=== PATIENT | male | born 1970 ===

== ENCOUNTER 2016-11-23 20:51 | Emergency (ER) | payer SELFPAY ==
[2016-11-23 21:00] VITALS: BP 130/83; PULSE 89; RESP 18; TEMP 98.4; O2SAT 98
--- NOTE | 2016-11-23 21:30 | ED PDOC ---
HPI: CCC, URI, Sore Throat Time Seen by Provider: 11/23/16 21:03 Chief Complaint (Nursing): Cough, Cold, Congestion Chief Complaint (Provider): Cough, chest pain, feverish History Per: Patient History/Exam Limitations: no limitations Have you had recent travel within the past 21 days to any of the following countries: [place], [place], [place] or [place]?: No Onset/Duration Of Symptoms: Days (4) Current Symptoms Are (Timing): Still Present Location Of Pain: Throat, Diffuse Myalgias, Headache Sick Contacts (Context): None Associated Symptoms: Fever (No temp taken at home ), Sore Throat, Cough, Sputum , Myalgias Additional Complaint(s): PT states he last took tylenol over 8 hours [employer]. Past Medical History Reviewed: Historical Data, Nursing Documentation, Vital Signs Vital Signs: Last Vital Signs Temp 98.4 F 11/23/16 20:57 Pulse 89 11/23/16 20:57 Resp 18 11/23/16 20:57 BP 130/83 11/23/16 20:57 Pulse Ox 98 11/23/16 21:37 - Medical History PMH: Bronchitis, HTN, Pneumonia - Surgical History Surgical History: Back Surgery (x2) - Family History Family History: States: Unknown Family Hx - Living Arrangements Living Arrangements: With Family - Social History Current smoker - smoking cessation education provided: No Alcohol: None Drugs: Denies - Home Medications Home Medications: Ambulatory Orders Medication Instructions Recorded Amoxicillin/Clavulanate [Augmentin 1 tab PO BID #14 tab 11/30/15 875 MG-125 MG] Azithromycin [Zithromax] 1 tab PO DAILY #6 tab 04/20/16 Ibuprofen [Motrin] 600 mg PO Q8 PRN #21 tab 04/20/16 Promethazine/Codeine 5 ml PO Q12 PRN #100 ml 04/20/16 [Codeine/Promethazine 10 MG/5 Ml-6.25 MG/5 Ml] Pseudoephedrine [Sudafed Tab] 60 mg PO Q6 PRN #24 tab 04/20/16 Azithromycin [Zithromax] 250 mg PO DAILY #6 tab 11/23/16 - Allergies Allergies/Adverse Reactions: Allergies Allergy/AdvReac Type Severity Reaction Status Date / Time No Known Allergies Allergy Verified 11/23/16 21:01 Review of Systems ROS Statement: Except As Marked, All Systems Reviewed And Found Negative Constitutional: Positive for: Fever Cardiovascular: Positive for: Chest Pain Respiratory: Positive for: Cough Physical Exam - Reviewed Nursing Documentation Reviewed: Yes Vital Signs Reviewed: Yes - Physical Exam Appears: Positive for: Well, Non-toxic, No Acute Distress Head Exam: Positive for: ATRAUMATIC, NORMAL INSPECTION, NORMOCEPHALIC Skin: Positive for: Normal Color, Warm, DRY Eye Exam: Positive for: Normal appearance ENT: Positive for: Normal ENT Inspection Neck: Positive for: Normal, Painless ROM Cardiovascular/Chest: Positive for: Regular Rate, Rhythm Respiratory: Positive for: Normal Breath Sounds. Negative for: Accessory Muscle Use Back: Positive for: Normal Inspection Extremity: Positive for: Normal ROM Neurologic/Psych: Positive for: Alert, Oriented - ECG O2 Sat by Pulse Oximetry: 98 Disposition - Clinical Impression Clinical Impression: URI (upper respiratory infection) - Patient ED Disposition Is Patient to be Admitted: No Counseled Patient/Family Regarding: Diagnosis, Need For Followup, Rx Given - Disposition [facility] Disposition: Routine/Home Disposition Time: 22:09 Condition: GOOD Prescriptions: Azithromycin [Zithromax] 250 mg PO DAILY #6 tab Instructions: Upper Respiratory Infection (ED) Print Language: NICARAGUAN
--- NOTE | 2016-11-24 09:57 | RAD ---
HISTORY: cough COMPARISON: No prior. TECHNIQUE: Chest PA and lateral FINDINGS: LUNGS: No active pulmonary disease. PLEURA: No significant pleural effusion identified. No pneumothorax apparent. CARDIOVASCULAR: Normal. OSSEOUS STRUCTURES: No significant abnormalities. VISUALIZED UPPER ABDOMEN: Normal. OTHER FINDINGS: None. IMPRESSION: No active disease.
--- NOTE | 2016-11-24 13:31 | CARD ---
APPROVED REPORT EKG Measurement Heart [id number] <Conclusion> Normal sinus rhythm Normal ECG
== END 2016-11-23 22:24 | disposition home or self-care (01) ==
LOC: H.ER 20:51
DX: J06.9 Acute upper respiratory infection, unspecified (principal)

== ENCOUNTER 2017-03-07 11:07 | Day surgery (SDC) | payer SELFPAY ==
[2017-03-07 11:35] VITALS: BMI 35.8
[2017-03-07] MEDS ORDERED: Lactated Ringer's 1,000 ML IV ONE (12:30)
[2017-03-07] MEDS ORDERED: methylPREDNISolone Depo 80 mg/ml Inj ONE (14:34)
[2017-03-07] MEDS ORDERED: Iohexol 300 10 ML ONE (14:34)
[2017-03-07] MEDS ORDERED: Propofol 10 mg/ml Inj (20 ML) ONE (14:43)
[2017-03-07] MEDS ORDERED: Lidocaine 1% 20 MG/2 ML PF AMP ONE (14:49)
[2017-03-07] MEDS ORDERED: Lidocaine 1% Inj (20ml) ONE (14:49)
[2017-03-07] MEDS ORDERED: Lactated Ringer's 1,000 ML IV SCH (15:06)
--- NOTE | 2017-03-07 16:00 | RAD ---
PROCEDURE: INTRAOPERATIVE FLUOROSCOPY, SACRUM HISTORY: PAIN MANAGEMENT COMPARISON: None TECHNIQUE: Intraoperative fluoroscopy was provided with spot fluoroscopic images submitted. FINDINGS: Intra under fluoroscopy was provided to the referring physician was cyst and caudal epidural spinal block with spot fluoroscopic images submitted demonstrating an epidural injection at the inferior sacrum. Please see operative report further detail. 8.4 seconds of fluoroscopy time was utilized totaling 3.8 mGy. IMPRESSION: As discussed above.
[2017-03-07 16:22] VITALS: RESP 18
[2017-03-07 17:25] VITALS: BP 133/77; PULSE 55; TEMP 97.8; O2SAT 99
--- NOTE | 2017-03-08 01:31 | OP ---
PROCEDURE DATE: PREOPERATIVE DIAGNOSIS: Lumbar radiculopathy. POSTOPERATIVE DIAGNOSIS: Lumbar radiculopathy. PROCEDURE: Caudal epidural under fluoroscopic guidance. ESTIMATED BLOOD LOSS: None. COMPLICATIONS: None. DESCRIPTION OF PROCEDURE: After informed consent was obtained, the patient was brought to the OR and placed on the table on prone position. All pressure points were padded, sedation was administered by anesthesia. Lumbosacral spine was prepped with iodine x3 and draped in the normal sterile fashion. X-ray was used in the AP and lateral views to identify the sacral hiatus. 2 mL of 1% lidocaine was used to create a skin wheal, using a 25-gauge needle. A 22-gauge Touhy epidural needle was advanced in the lateral fluoro view to contact and mcgrath the sacrococcygeal ligament. There was no paresthesia during placement of the needle. After negative aspiration for heme or CSF, 2 mL of contrast was used to delineate the epidural space. After negative aspiration for heme or CSF, 20 mL of 0.5% preservative free lidocaine and Depo-Medrol 80 mg was easily instilled. There was no paresthesia during the procedure. The patient was brought to stage 2 recovery room with bilateral lower extremity motor and sensory intact. The patient was subsequently discharged from stage 2 recovery room. Andrew Siddiqui MD [facility]
== END 2017-03-07 17:35 | disposition home or self-care (01) ==
LOC: H.OPSURG 11:07
PROVIDERS: ATTEND Anesthesiology Pain Medicine
DX: M54.16 Radiculopathy, lumbar region (principal); J42 Unspecified chronic bronchitis; E66.9 Obesity, unspecified; M19.90 Unspecified osteoarthritis, unspecified site
CPT/HCPCS: 62322; J1040; J2001; J2704; J7120; Q9967

== ENCOUNTER 2017-03-27 15:01 | Emergency (ER) | payer SELFPAY ==
[2017-03-27 15:01] VITALS: BMI 35.8
[2017-03-27 15:09] VITALS: BP 132/74; PULSE 72; RESP 18; TEMP 97.6; O2SAT 97
--- NOTE | 2017-03-27 15:45 | ED PDOC ---
HPI: CCC, URI, Sore Throat Time Seen by Provider: 03/27/17 15:15 Chief Complaint (Nursing): Chest Pain Chief Complaint (Provider): Cough History Per: Patient, Family () History/Exam Limitations: no limitations Onset/Duration Of Symptoms: Days (x3 days) Current Symptoms Are (Timing): Still Present Additional Complaint(s): 47 y/o male presents to the emergency department with a complaint of a chest pain only when coughing. Denies headache, but has green sputum, runny nose, and congestion x3 days. Reports taking Tylenol and home remedies for the relief of symptoms. Denies shortness of breath, nausea, vomiting, diarrhea, abdominal pain, sore throat, and fever. No abd pain. No weakness. Past Medical History Reviewed: Historical Data, Nursing Documentation, Vital Signs Vital Signs: Last Vital Signs Temp 97.6 F 03/27/17 15:03 Pulse 72 03/27/17 15:03 Resp 18 03/27/17 15:03 BP 132/74 03/27/17 15:03 Pulse Ox 97 03/27/17 15:45 - Medical History PMH: Arthritis, Bronchitis, HTN, Pneumonia Denies: Chronic Kidney Disease - Surgical History Surgical History: Back Surgery (x2) - Family History Family History: States: Unknown Family Hx - Living Arrangements Living Arrangements: With Family - Social History Current smoker - smoking cessation education provided: No Alcohol: None Drugs: Denies - Home Medications Home Medications: Ambulatory Orders Medication Instructions Recorded Ibuprofen [Motrin] 600 mg PO TID 7 Days 03/27/17 - Allergies Allergies/Adverse Reactions: Allergies Allergy/AdvReac Type Severity Reaction Status Date / Time No Known Allergies Allergy Verified 03/27/17 15:26 Review of Systems Constitutional: Negative for: Fever, Weakness ENT: Positive for: Nose Discharge, Nose Congestion. Negative for: Throat Pain Cardiovascular: Positive for: Chest Pain (due to cough) Respiratory: Positive for: Cough, Sputum (green) Gastrointestinal: Negative for: Nausea, Vomiting, Abdominal Pain, Diarrhea Musculoskeletal: Negative for: Neck Pain, Shoulder Pain, Arm Pain Skin: Negative for: Rash Neurological: Negative for: Weakness, Numbness, Headache Physical Exam - Reviewed Nursing Documentation Reviewed: Yes Vital Signs Reviewed: Yes - Physical Exam Appears: Positive for: Non-toxic, No Acute Distress Head Exam: Positive for: ATRAUMATIC, NORMAL INSPECTION, NORMOCEPHALIC Skin: Positive for: Normal Color, Warm, Dry Eye Exam: Positive for: Normal appearance, EOMI ENT: Positive for: Nasal Congestion. Negative for: Pharyngeal Erythema, Tonsillar Exudate Neck: Positive for: Normal, Painless ROM, Supple Cardiovascular/Chest: Positive for: Regular Rate, Rhythm. Negative for: Edema, Murmur Respiratory: Positive for: Normal Breath Sounds. Negative for: Accessory Muscle Use, Respiratory Distress Gastrointestinal/Abdominal: Positive for: Normal Exam, Soft. Negative for: Tenderness Back: Positive for: Normal Inspection. Negative for: L CVA Tenderness, R CVA Tenderness Extremity: Positive for: Normal ROM. Negative for: Tenderness, Pedal Edema Neurologic/Psych: Positive for: Alert, Oriented (x3) - ECG ECG: Positive for: Interpreted By Me, Viewed By Me ECG Rhythm: Positive for: Normal QRS, Normal ST Segment, Sinus Rhythm O2 Sat by Pulse Oximetry: 97 (RA) Pulse Ox Interpretation: Normal - Radiology X-Ray: Interpreted by Me, Viewed By Me X-Ray Interpretation: No Acute Disease - Progress ED Course And Treament: 1633: Stable. AAOx3. Pain free. Likely URI. Fu with pcp. Medical Decision Making Medical Decision Making: Time:15:30 Initial impression: Cough Initial plan: --EKG --Chest x-ray --Motrin 600 mg PO --Reevaluation Scribe Attestation: Documented by Jillian Yang, acting as a scribe for Kenton Hayes MD. Provider Scribe Attestation: All medical record entries made by the Scribe were at my direction and personally dictated by me. I have reviewed the chart and agree that the record accurately reflects my personal performance of the history, physical exam, medical decision making, and the department course for this patient. I have also personally directed, reviewed, and agree with the discharge instructions and disposition. Disposition - Clinical Impression Clinical Impression: URI (upper respiratory infection) - Patient ED Disposition Is Patient to be Admitted: No Counseled Patient/Family Regarding: Studies Performed, Diagnosis, Need For Followup - Disposition Referrals: [facility] [Outside] - 03/28/17 Disposition: Routine/Home Disposition Time: 16:00 Condition: STABLE Additional Instructions: Return if not better in 3 days. Prescriptions: Ibuprofen [Motrin] 600 mg PO TID 7 Days Instructions: Upper Respiratory Infection (ED) Forms: [employer] (Colombian) Print Language: SCOTTISH
--- NOTE | 2017-03-27 17:05 | RAD ---
HISTORY: dyspnea COMPARISON: 11/23/2016. TECHNIQUE: Chest PA and lateral FINDINGS: LUNGS: No active pulmonary disease. PLEURA: No significant pleural effusion identified. No pneumothorax apparent. CARDIOVASCULAR: No radiographic findings to suggest acute or significant cardiovascular disease. OSSEOUS STRUCTURES: No significant abnormalities. VISUALIZED UPPER ABDOMEN: Normal. OTHER FINDINGS: None. IMPRESSION: No active disease. No significant interval change compared to the prior examination(s).
--- NOTE | 2017-03-28 07:54 | CARD ---
APPROVED REPORT EKG Measurement Heart [id number] <Conclusion> Normal sinus rhythm Normal ECG
== END 2017-03-27 16:39 | disposition home or self-care (01) ==
LOC: H.ER 15:01
DX: J06.9 Acute upper respiratory infection, unspecified (principal); I10 Essential (primary) hypertension

== ENCOUNTER 2017-07-28 14:38 | Emergency (ER) | payer OTHER, SELFPAY ==
[2017-07-28 14:39] VITALS: BMI 35.8
[2017-07-28] MEDS ORDERED: Sodium Chloride 0.9% 1,000 ML IV STA (15:19)
--- NOTE | 2017-07-28 15:34 | ED PDOC ---
HPI: Chest Pain Time Seen by Provider: 07/28/17 15:02 Chief Complaint (Nursing): Chest Pain Chief Complaint (Provider): Flu like symptoms History Per: Patient History/Exam Limitations: no limitations Onset/Duration Of Symptoms: Days Current Symptoms Are (Timing): Still Present Additional History Per: Patient Additional Complaint(s): This is 47 y/o male with PMH of HTN comes to the ED complaining of flu like symptoms. Patient c/o 1 day history of dry cough, congestion, fever, headache and chest soreness. Tmax 104 yesterday morning, admits bodyacheas denies any runny nose, SOB, dizziness, numbness, tingling, abdominal pain or urinary symptoms. Past Medical History Vital Signs: Last Vital Signs Temp 99.6 F 07/28/17 14:46 Pulse 96 H 07/28/17 14:46 Resp 18 07/28/17 14:46 BP 161/75 H 07/28/17 14:46 Pulse Ox 99 07/28/17 17:53 - Medical History PMH: Arthritis, Bronchitis, HTN, Pneumonia Denies: Chronic Kidney Disease - Surgical History Surgical History: Back Surgery (x2) - Family History Family History: States: Unknown Family Hx - Social History Current smoker - smoking cessation education provided: No Ex-Smoker (has not smoked in the last 12 months): No Alcohol: None Drugs: Denies - Home Medications Home Medications: Ambulatory Orders Medication Instructions Recorded Ibuprofen [Motrin] 600 mg PO TID 7 Days tab 03/27/17 Albuterol HFA [Ventolin HFA 90 1 - 2 puff IH Q4H PRN #1 bottle 07/28/17 mcg/actuation (8 g)] - Allergies Allergies/Adverse Reactions: Allergies Allergy/AdvReac Type Severity Reaction Status Date / Time No Known Allergies Allergy Verified 03/27/17 15:26 KALYAN Risk Score for UA/NSTEMI - KALYAN Risk Score Age > 64: NO 3 or more CAD Risk Factors: NO Known CAD (Stenosis greater than 50%): NO Aspirin use in past 7 days: NO Severe Angina: NO EKG ST changes greater than 0.5mm: NO Positive Cardiac Marker: NO KALYAN Score: 0 Risk %: 5% Curb-65 Severity Score - CURB-65 Severity Score Confusion: No Respiratory Rate greater than/equal to 30: No Systolic BP <90 or Diastolic BP less than/equal 60mmHg: No Age >64: No Curb-65 Score: 0 Percentage 30-day mortality: 0.6% Wells Criteria for PE - Wells Criteria for Pulmonary Embolism Clinical Signs and Symptoms of DVT: No P.E is #1 Diagnosis, or Equally Likely: No Heart Rate >100: No Immobilization at least 3 days;Surgery previous 4 weeks: No Previous, objectively diagnosed PE or DVT: No Hemoptysis: No Malignancy w/treatment within 6 months, or palliative: No Total Score: 0 Review of Systems Constitutional: Positive for: Fever Eyes: Negative for: Pain, Vision Change, Conjunctivae Inflammation ENT: Negative for: Ear Pain, Nose Pain Cardiovascular: Positive for: Other (Chest tightness ). Negative for: Palpitations, Orthopnea Respiratory: Positive for: Cough. Negative for: Shortness of Breath, Hemoptysis Gastrointestinal: Positive for: Nausea. Negative for: Vomiting, Abdominal Pain , Diarrhea Genitourinary Male: Negative for: Dysuria Musculoskeletal: Negative for: Neck Pain Skin: Negative for: Rash Neurological: Negative for: Weakness, Numbness Physical Exam - Physical Exam Appears: Positive for: No Acute Distress Head Exam: Positive for: ATRAUMATIC Skin: Positive for: Normal Color Eye Exam: Positive for: Normal appearance, EOMI ENT: Positive for: Pharynx Is (mildly red ) Neck: Positive for: Normal, Painless ROM Cardiovascular/Chest: Positive for: Regular Rate, Rhythm, Chest Non Tender Respiratory: Positive for: Normal Breath Sounds Extremity: Positive for: Normal ROM Neurologic/Psych: Positive for: Alert, Oriented. Negative for: Motor/Sensory Deficits - ECG O2 Sat by Pulse Oximetry: 99 - Progress ED Course And Treament: 47 y/o male with cough, congestion, headache and chest tightness - Influenza A/B - CXR - IVF - Toradol 30mg IV - Re-evaluate Case discussed with Dr. Ramsey Patient was seen, feels improved - Influenza A/B negative - CXR with out any acute changes Patient was reevaluated and comfortable going home Rx Albuterol given Medical Decision Making Medical Decision Making: URI symptoms Disposition - Clinical Impression Clinical Impression: Cough - Disposition Referrals: [facility] [Outside] [facility] [Outside] Disposition: Routine/Home Disposition Time: 17:54 Condition: IMPROVED Additional Instructions: FOLLOW UP WITH YOUR PRIMARY DOCTOR IN 1-2 DAYS RETURN TO THE ED WITH ANY WORSENING OR CONCERNING SYMPTOMS Prescriptions: Albuterol HFA [Ventolin HFA 90 mcg/actuation (8 g)] 1 - 2 puff IH Q4H PRN #1 bottle PRN Reason: Wheezing Instructions: Acute Cough (ED) Forms: [employer] (Fijian)
--- NOTE | 2017-07-28 16:11 | RAD ---
HISTORY: cough COMPARISON: Chest radiograph dated 03/27/2017. TECHNIQUE: Chest PA and lateral FINDINGS: LUNGS: No active pulmonary disease. PLEURA: No significant pleural effusion identified. No pneumothorax apparent. CARDIOVASCULAR: Normal. OSSEOUS STRUCTURES: Unchanged. VISUALIZED UPPER ABDOMEN: Normal. OTHER FINDINGS: None. IMPRESSION: No active disease.
[2017-07-28 18:10] VITALS: BP 120/70; PULSE 71; RESP 20; TEMP 98; O2SAT 98
== END 2017-07-28 18:10 | disposition home or self-care (01) ==
LOC: H.ER 14:38
DX: R05 Cough (principal); R50.9 Fever, unspecified; I10 Essential (primary) hypertension
CPT/HCPCS: 71046; 87804; 96365; 99283; J1885; J7040

== ENCOUNTER 2017-10-03 09:43 | Day surgery (SDC) | payer SELFPAY ==
[2017-10-03] MEDS ORDERED: MethylPREDNISolone Depo 40 mg/ml Inj ONE (13:31)
[2017-10-03] MEDS ORDERED: Iohexol 300 10 ML ONE (13:31)
[2017-10-03] MEDS ORDERED: methylPREDNISolone Depo 80 mg/ml Inj ONE (13:31)
[2017-10-03] MEDS ORDERED: Lidocaine 1% Inj (20ml) ONE (13:32)
[2017-10-03] MEDS ORDERED: Lidocaine 1% 20 MG/2 ML PF AMP ONE (13:32)
[2017-10-03] MEDS ORDERED: Bupivacaine HCl 0.25% PF (10 ml) Inj ONE (13:32)
[2017-10-03] MEDS ORDERED: Lidocaine 2% MPF (5 ml) Inj ONE (13:34)
[2017-10-03] MEDS ORDERED: Midazolam 2 MG/2 ML VIAL ONE (13:34)
[2017-10-03] MEDS ORDERED: Propofol 10 mg/ml Inj (20 ML) ONE (13:34)
[2017-10-03] MEDS ORDERED: Lactated Ringer's 500 ML IV ONE (13:44)
--- NOTE | 2017-10-03 15:02 | OP ---
PROCEDURE DATE: 10/03/2017 PROCEDURE: Left transforaminal epidurals at nerve roots L4 and L5 on the left side. ANESTHESIOLOGIST: Dr. Shah. TYPE OF ANESTHESIA: IV sedation. ESTIMATED BLOOD LOSS: None. COMPLICATIONS: None. DESCRIPTION OF PROCEDURE: After informed consent was obtained, the patient was brought to the OR and placed on the table on prone position. All pressure points were padded, sedation was administered by Dr. Shah. Lumbosacral spine was prepped with iodine x3 and draped in the normal sterile fashion. X-ray was used in the AP views to identify the L4,L5 vertebral bodies. X-ray was turned into oblique view. 4 mL of 1% lidocaine using a 25-gauge needle was used to create two skin wheals. A 22-gauge 3.5-inch spinal needle was advanced under oblique view towards the base of the left L5 pedicle at the 6 o'clock position. Xray was used in lateral views and AP views to confirm appropriate placement. There was no paresthesia during placement of the needle. After negative aspiration for heme or CSF, 1 mL of Omnipaque contrast dye was used to delineate the epidural space. After negative aspiration for heme or CSF, 2 mL of 0.5% lidocaine and Depo-Medrol was easily instilled. This procedure was repeated for the left L4 nerve root. There was no paresthesia during the case. The patient was brought to stage 2 recovery room and bilateral lower extremity motor and sensory intact. There was no paresthesia during the case. 80 mg of Depo-Medrol was easily instilled. Andrew Siddiqui MD [facility]
[2017-10-03 16:14] VITALS: RESP 18
[2017-10-03 17:04] VITALS: BP 110/70; PULSE 65; TEMP 97.6; O2SAT 98
--- NOTE | 2017-10-03 17:11 | RAD ---
PROCEDURE: Intraoperative Fluoroscopy. HISTORY: PAIN MANAGEMENT FINDINGS: Fluoroscopic assistance was provided. 49.3 seconds fluoroscopy time utilized during this procedure. Radiation dose = 20.23 mGy Please refer to the operative report for additional details.
== END 2017-10-03 17:35 | disposition home or self-care (01) ==
LOC: H.OPSURG 09:43
PROVIDERS: ATTEND Anesthesiology Pain Medicine
DX: M54.16 Radiculopathy, lumbar region (principal); I10 Essential (primary) hypertension
CPT/HCPCS: 64483; J1040; J2250; J2704; J3010; J7120; Q9967

== ENCOUNTER 2018-03-05 19:41 | Emergency (ER) | payer SELFPAY ==
[2018-03-05 19:41] VITALS: BMI 35.8
[2018-03-05] MEDS ORDERED: Promethazine/Cod 6.25mg-10mg/5ml Syr UD PO STA (20:38)
[2018-03-05] MEDS ORDERED: Albuterol-Ipratrop 3 mg / 0.5 (3 ml) UD INH STA (20:38)
[2018-03-05] MEDS ORDERED: Promethazine/Cod 6.25mg-10mg/5ml Syr UD ONE (21:04)
[2018-03-05] MEDS ORDERED: Albuterol-Ipratrop 3 mg / 0.5 (3 ml) UD ONE (21:05)
[2018-03-05 21:12] LABS: BASO # 0.1 K/uL (0.0-0.2); BASO % 0.7 % (0.0-2.0); EOS # 0.4 K/uL (0.0-0.7); EOS % 3.6 % (0.0-4.0); HEMOGLOBIN 15.7 g/dL (12.0-18.0); MEAN CELL VOLUME 89.4 fl (80.0-94.0); MEAN CORPUSCULAR HEMOGLOBIN 30.3 pg (27.0-31.0); MEAN CORPUSCULAR HGB CONC 33.9 g/dL (33.0-37.0); MEAN PLATELET VOLUME 9.3 fl (7.2-11.7); MONO # 0.8 K/uL (0.0-0.8); MONO % 7.3 % (0.0-10.0); NEUT # 8.3 K/uL (1.8-7.0); NEUT % 71.4 % (50.0-75.0); RBC 5.19 Mil/uL (4.40-5.90); RED CELL DISTRIBUTION WIDTH 15.2 % (11.5-14.5); WHITE BLOOD COUNT 11.6 K/uL (4.8-10.8)
--- NOTE | 2018-03-05 21:13 | ED PDOC ---
HPI: Chest Pain Time Seen by Provider: 03/05/18 20:14 Chief Complaint (Nursing): Chest Pain Chief Complaint (Provider): Chest Pain History Per: Patient History/Exam Limitations: no limitations Onset/Duration Of Symptoms: Days (x2) Current Symptoms Are (Timing): Still Present Additional Complaint(s): 48 y/o male with a PMHx of HTN and bronchitis presents to the ED complaining of chest pain, cough, and congestion, onset two days ago. Patient states chest pain starts at the right side of the chest and radiates to the back. Patient states pain is only present with a cough. Patient reports of feeling congestion his lungs, cough is dry and is occasionally short of breath. Patient reports of similar history in the past when he was diagnosed with bronchitis. Denies fever , dizziness and syncope. PMD: Frank Conley Past Medical History Reviewed: Historical Data, Nursing Documentation, Vital Signs Vital Signs: Last Vital Signs Temp 99.6 F 03/05/18 23:02 Pulse 90 03/05/18 23:02 Resp 22 03/05/18 23:02 BP 136/79 03/05/18 23:02 Pulse Ox 99 03/05/18 23:02 - Medical History PMH: Arthritis, Bronchitis, HTN, Pneumonia Denies: Chronic Kidney Disease - Surgical History Surgical History: Back Surgery - Family History Family History: States: Unknown Family Hx - Home Medications Home Medications: Ambulatory Orders Medication Instructions Recorded Aprovil 25 mg PO DAILY 10/03/17 Diclofenac Sodium [Voltaren] 75 mg PO DAILY 10/03/17 Albuterol HFA [Ventolin HFA 90 1 puff IH Q4 PRN #1 inhaler 03/05/18 mcg/actuation (8 g)] Azithromycin [Z-Arturo] 250 mg PO ASDIR #6 tab 03/05/18 - Allergies Allergies/Adverse Reactions: Allergies Allergy/AdvReac Type Severity Reaction Status Date / Time No Known Allergies Allergy Verified 03/05/18 20:00 KALYAN Risk Score for UA/NSTEMI - KALYAN Risk Score Age > 64: NO 3 or more CAD Risk Factors: NO Known CAD (Stenosis greater than 50%): NO Aspirin use in past 7 days: NO Severe Angina: NO EKG ST changes greater than 0.5mm: NO Positive Cardiac Marker: NO KALYAN Score: 0 Risk %: 5% Wells Criteria for PE - Wells Criteria for Pulmonary Embolism Clinical Signs and Symptoms of DVT: No P.E is #1 Diagnosis, or Equally Likely: No Heart Rate >100: No Immobilization at least 3 days;Surgery previous 4 weeks: No Previous, objectively diagnosed PE or DVT: No Hemoptysis: No Malignancy w/treatment within 6 months, or palliative: No Total Score: 0 Review of Systems ROS Statement: Except As Marked, All Systems Reviewed And Found Negative Constitutional: Negative for: Fever Cardiovascular: Positive for: Chest Pain Respiratory: Positive for: Cough, Shortness of Breath, Other (Congestion) Neurological: Negative for: Dizziness, Other (Syncope) Physical Exam - Reviewed Nursing Documentation Reviewed: Yes Vital Signs Reviewed: Yes - Physical Exam Appears: Positive for: Non-toxic, No Acute Distress Head Exam: Positive for: ATRAUMATIC, NORMOCEPHALIC Skin: Positive for: Normal Color, Warm, Dry Eye Exam: Positive for: Normal appearance, EOMI, PERRL Neck: Positive for: Normal, Painless ROM, Supple Cardiovascular/Chest: Positive for: Regular Rate, Rhythm. Negative for: Murmur Respiratory: Positive for: Normal Breath Sounds. Negative for: Respiratory Distress Gastrointestinal/Abdominal: Positive for: Normal Exam, Soft. Negative for: Tenderness Back: Positive for: Normal Inspection. Negative for: L CVA Tenderness, R CVA Tenderness Extremity: Positive for: Normal ROM. Negative for: Pedal Edema, Deformity Neurologic/Psych: Positive for: Alert, Oriented. Negative for: Motor/Sensory Deficits - Laboratory Results Result Diagrams: 03/05/18 21:06 03/05/18 21:06 - ECG ECG Rhythm: Positive for: Normal QRS, Sinus Rhythm. Negative for: ST/T Changes Rate: 74 O2 Sat by Pulse Oximetry: 97 (RA) Pulse Ox Interpretation: Normal - Radiology X-Ray: Interpreted by Me, Viewed By Me X-Ray Interpretation: No Acute Disease Medical Decision Making Medical Decision Making: Time: 2105 Impression: cough with URI symptoms and chest pain Differentials include but not limited to acute bronchitis, pneumonia and less likely ACS Plan: -- EKG -- BMP -- Troponin I -- CBC with differentials -- CXR Two Views -- Duoneb 3 mg/0.5 mg (3ml) INH -- Phenergan/Codein Oral Syrup 5 ml PO -- Inspector Glass Or Mirror -- Peak Flow Pre/Post Tx ___ Scribe Attestation: Documented by Pancho Villatoro acting as a scribe for Dr. Ruy Beltran MD. Provider Scribe Attestation: All medical record entries made by the Scribe were at my direction and personally dictated by me. I have reviewed the chart and agree that the record accurately reflects my personal performance of the history, physical exam, medical decision making, and the department course for this patient. I have also personally directed, reviewed, and agree with the discharge instructions and disposition. Disposition - Clinical Impression Clinical Impression: Chest pain, Bronchitis - Patient ED Disposition Is Patient to be Admitted: No Doctor Will See Patient In The: Office Counseled Patient/Family Regarding: Studies Performed, Diagnosis, Need For Followup - Disposition Referrals: [facility] [Outside] Disposition Time: 23:00 Condition: GOOD Additional Instructions: Take your medications as instructed. Follow up with your PCP in 2-3 days. Prescriptions: Albuterol HFA [Ventolin HFA 90 mcg/actuation (8 g)] 1 puff IH Q4 PRN #1 inhaler PRN Reason: Cough Azithromycin [Z-Arturo] 250 mg PO ASDIR #6 tab Instructions: Chest Pain, Acute Bronchitis Forms: [facility] ED School/Work Excuse Print Language: PERUVIAN
[2018-03-05 21:22] LABS: BLOOD UREA NITROGEN 16 mg/dl (9-20); CALCIUM 9.6 mg/dL (8.4-10.2); GFR AFRICAN-AMERICAN > 60; GFR NON-AFRICAN AMERICAN > 60
[2018-03-05 23:12] VITALS: BP 136/79; RESP 22; TEMP 99.6
[2018-03-06 05:01] VITALS: PULSE 74; O2SAT 97
--- NOTE | 2018-03-06 08:45 | RAD ---
Date of service: 03/05/2018 HISTORY: chest pain COMPARISON: No prior. TECHNIQUE: Chest PA and lateral FINDINGS: LUNGS: No active pulmonary disease. PLEURA: No significant pleural effusion identified. No pneumothorax apparent. CARDIOVASCULAR: Normal. OSSEOUS STRUCTURES: No significant abnormalities. VISUALIZED UPPER ABDOMEN: Normal. OTHER FINDINGS: None. IMPRESSION: No interval acute cardiopulmonary disease appreciated.
--- NOTE | 2018-03-06 08:46 | CARD ---
APPROVED REPORT Date of service: 03/05/2018 EKG Measurement Heart [id number] [id number] <Conclusion> Normal sinus rhythm Normal ECG
== END 2018-03-05 23:35 | disposition home or self-care (01) ==
LOC: H.ER 19:41
DX: R07.9 Chest pain, unspecified (principal); J20.9 Acute bronchitis, unspecified; I10 Essential (primary) hypertension

== ENCOUNTER 2018-04-10 13:56 | Emergency (ER) | payer SELFPAY ==
[2018-04-10 13:56] VITALS: BMI 35.8
[2018-04-10 14:07] VITALS: RESP 18; O2SAT 99
[2018-04-10] MEDS ORDERED: guaiFENesin 200 mg/10 ml Syrup UD PO STA (14:44)
--- NOTE | 2018-04-10 14:46 | ED PDOC ---
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 denies: sore throat, vomiting, diarrhea Additional complaint(s):: 48 year old male presents to the ED complaining of having a dry cough and congestion since Tuesday. Patient reports also sneezing and a burning sensation to his eyes with increased tearing but no crusting or mucus discharge. He reports associated chest pain exclusively with coughing episodes. He took Motrin last night and has been using home remedies as well with no relief. Patient indicates having presented to this ED 1 month ago for similar symptoms and was diagnosed with bronchitis at that time. Denies fever, chills, orthopnea, dyspnea on exertion, diarrhea, vomiting, abdominal pain, ear pain, throat pain, sick contacts, headache/dizziness, jaw/arm pain, weakness/ numbness, and recent travel. PMD: Dr. Salmeron Past Medical History Reviewed: Historical Data, Nursing Documentation, Vital Signs Vital Signs: Last Vital Signs Temp 96.4 F L 04/10/18 14:04 Pulse 80 04/10/18 14:04 Resp 18 04/10/18 14:04 BP 145/81 04/10/18 14:04 Pulse Ox 99 04/10/18 14:04 - Medical History PMH: Arthritis, Bronchitis, Diabetes, HTN - Surgical History Surgical History: Back Surgery - Family History Family History: States: Unknown Family Hx - Social History Current smoker - smoking cessation education provided: No Alcohol: None Drugs: Denies - Home Medications Home Medications: Ambulatory Orders Medication Instructions Recorded Aprovil 25 mg PO DAILY 10/03/17 Diclofenac Sodium [Voltaren] 75 mg PO DAILY 10/03/17 Albuterol HFA [Ventolin HFA 90 1 puff IH Q4 PRN #1 inhaler 03/05/18 mcg/actuation (8 g)] Azithromycin [Z-Arturo] 250 mg PO ASDIR #6 tab 03/05/18 Fluticasone Nasal [Flonase] 2 actuation NS DAILY PRN #1 unit 04/10/18 Ibuprofen [Motrin Tab] 800 mg PO Q8 PRN #21 tab 04/10/18 Promethazine DM [Phenergan DM 5 ml PO Q6 PRN #150 ml 04/10/18 Syrup] - Allergies Allergies/Adverse Reactions: Allergies Allergy/AdvReac Type Severity Reaction Status Date / Time No Known Allergies Allergy Verified 03/05/18 20:00 Review of Systems ROS Statement: Except As Marked, All Systems Reviewed And Found Negative Eyes: Positive for: Other (eye burning) ENT: Positive for: Nose Congestion. Negative for: Ear Pain, Throat Pain Cardiovascular: Positive for: Chest Pain (exclusively with coughing) Respiratory: Positive for: Cough Gastrointestinal: Negative for: Vomiting, Abdominal Pain Neurological: Negative for: Headache Physical Exam - Reviewed Nursing Documentation Reviewed: Yes Vital Signs Reviewed: Yes - Physical Exam Comments: GENERAL APPEARANCE: Patient is awake, alert, oriented x 3, in no acute distress. Resting comfortably. SKIN: Warm, dry; (-) cyanosis. EYES: (-) conjunctival pallor or injection (-) crusting (-) mucus discharge. EOMI and painless. Pupils equal and reactive. (-) orbital tenderness or edema (- ) stye ENMT: Mucous membranes moist. Airway patent: (-) stridor. Pharynx: clear, uvula midline (-) erythema, (-) exudate. TMs: nonbulging and nonerythematous. Nares: (+) clear rhinorrhea. (-) sinus tenderness. NECK: Supple, FROM (-) tenderness, (-) stiffness, (-) lymphadenopathy. CHEST AND RESPIRATORY: (-) rhonchi, (-) rales, (-) wheezes; breath sounds equal bilaterally. Respirations even and nonlabored, speaking in full sentences. HEART AND CARDIOVASCULAR: (-) irregularity ABDOMEN AND GI: Soft; (-) tenderness (-) distention (-) guarding. EXTREMITIES: (-) deformity; (-) edema. NEURO AND PSYCH: Mental status as above. Cranial nerves grossly intact; strength symmetric. Gait: steady. Speech: clear. (-) facial asymmetry (-) aphasia Medical Decision Making Medical Decision Making: Initial Impression: cough, congestion likely viral URI Initial Plan: --ECG --Chest X-ray --Robitusin 200mg PO --Re-evaluation 15:46 Chest X-ray FINDINGS: LUNGS: No active pulmonary disease. PLEURA: No significant pleural effusion identified. No pneumothorax apparent. CARDIOVASCULAR: Cardiomediastinal silhouette stably enlarged. OSSEOUS STRUCTURES: Unchanged. VISUALIZED UPPER ABDOMEN: Normal. OTHER FINDINGS: None. IMPRESSION: No active disease. 1615 On re-evaluation, patient reports improvement of symptoms. On exam, patient remains AAOx3, in no acute distress. Lungs clear to auscultation, cardiac RRR, abdomen soft, non-tender, repeat neuro exam shows no focal findings. Vitals stable. Lab/Diagnostic results d/w the patient in great detail. Diagnosis of cough, congestion, viral URI d/w the patient. Based on history, exam and diagnostic results, plan will be for outpatient follow up. Patient instructed to follow-up with pmd / referral provided / the clinic in 1- 2 days without fail. Advised to take medication as prescribed. Return to the emergency room at any time for any new or worsening symptoms. Patient states he fully agrees with and understands discharge instructions. States that he agrees with the plan and disposition. Verbalized and repeated discharge instructions and plan. I have given the patient opportunity to ask any additional questions. Scribe Attestation: Documented by Rico Laughlin acting as a scribe for Ramonita RENE. Provider Scribe Attestation: All medical record entries made by the Scribe were at my direction and personally dictated by me. I have reviewed the chart and agree that the record accurately reflects my personal performance of the history, physical exam, medical decision making, and the department course for this patient. I have also personally directed, reviewed, and agree with the discharge instructions and disposition. - ECG ECG Rhythm: Positive for: Sinus Rhythm (normal). Negative for: ST/T Changes Interpretation Of ECG: QTC 414 Rate: 73 O2 Sat by Pulse Oximetry: 99 (RA) Pulse Ox Interpretation: Normal Disposition - Clinical Impression Clinical Impression: Cough, URI (upper respiratory infection), Common cold - Patient ED Disposition Is Patient to be Admitted: No Counseled Patient/Family Regarding: Studies Performed, Diagnosis, Need For Followup, Rx Given - Disposition Disposition: Routine/Home Disposition Time: 16:19 Condition: STABLE Additional Instructions: Yojana un seguimiento con azul mdico de cabecera en 1-2 moya sin falta. La atencin mdica de emergencia que recibi hoy estaba dirigida a edie sntomas agudos. Si le prescribieron algn medicamento, llnelo y tome segn las indicaciones. Edie sntomas pueden tardar varios moya en resolverse. Regrese al Departamento de Emergencia si edie sntomas empeoran, no mejoran o si tiene alg n otro problema. Comunquese con azul mdico en 2 moya para misbah reevaluacin y seguimiento / o llame a collette de los mdicos / clnicas a los que randolph referido y que figura en el formulario de Informacin de visitas del paciente que se incluye en azul paquete de richard. Traiga todos los documentos que recibi al momento del richard junto con los medicamentos que est tomando en azul visita de seguimiento. Nuestro tratamiento no puede reemplazar la atencin mdica en curso por parte de un proveedor de atencin primaria (PCP) fuera del departamento de emergencias. Prescriptions: Fluticasone Nasal [Flonase] 2 actuation NS DAILY PRN #1 unit PRN Reason: Nasal Congestion Ibuprofen [Motrin Tab] 800 mg PO Q8 PRN #21 tab PRN Reason: pain/ fever Promethazine DM [Phenergan DM Syrup] 5 ml PO Q6 PRN #150 ml PRN Reason: Cough Instructions: Cough in Adults, Viral Upper Respiratory Infection, Adult (DC), Cough, Runny Nose, and the Common Cold Forms: [employer] (Bulgarian) Print Language: ITALIAN - POA Present On Arrival: None
--- NOTE | 2018-04-10 15:48 | RAD ---
Date of service: 04/10/2018 HISTORY: chest pain with cough COMPARISON: Chest radiograph dated 03/05/2018. TECHNIQUE: Chest PA and lateral FINDINGS: LUNGS: No active pulmonary disease. PLEURA: No significant pleural effusion identified. No pneumothorax apparent. CARDIOVASCULAR: Cardiomediastinal silhouette stably enlarged. OSSEOUS STRUCTURES: Unchanged. VISUALIZED UPPER ABDOMEN: Normal. OTHER FINDINGS: None. IMPRESSION: No active disease.
[2018-04-10] MEDS ORDERED: guaiFENesin 100 mg/5 ml Syrup UD ONE (16:05)
[2018-04-10 17:15] VITALS: BP 128/80; PULSE 78; TEMP 98
--- NOTE | 2018-04-11 12:35 | CARD ---
APPROVED REPORT Date of service: 04/10/2018 EKG Measurement Heart [id number] 140P58 [id number] <Conclusion> Normal sinus rhythm Normal ECG
== END 2018-04-10 16:20 | disposition home or self-care (01) ==
LOC: H.ER 13:56
DX: J06.9 Acute upper respiratory infection, unspecified (principal); R05 Cough; J11.1 Influenza due to unidentified influenza virus with other respiratory manifestations; E11.9 Type 2 diabetes mellitus without complications; I10 Essential (primary) hypertension

== ENCOUNTER 2018-11-22 10:09 | Day surgery (SDC) | payer SELFPAY ==
[2018-11-22 11:32] VITALS: BMI 34.0
[2018-11-22] MEDS ORDERED: Midazolam 2 MG/2 ML VIAL ONE (11:38)
[2018-11-22] MEDS ORDERED: Lidocaine 4% (Laryng-O-Jet) Kit MM ONE (11:38)
[2018-11-22] MEDS ORDERED: ePHEDrine 50 mg/ml Inj ONE (11:38)
[2018-11-22] MEDS ORDERED: Propofol 10 mg/ml Inj (20 ML) ONE ×2 (11:38→13:30)
[2018-11-22] MEDS ORDERED: Succinylcholine 200 mg/10 ml Inj IV ONE (11:47)
[2018-11-22] MEDS ORDERED: Dexamethasone 4 mg/1 ml ONE (13:45)
[2018-11-22] MEDS ORDERED: Bupivacaine 0.5% Inj(30mL) ONE (14:32)
[2018-11-22] MEDS ORDERED: Lactated Ringer's 1,000 ML IV ONE (15:04)
[2018-11-22] MEDS ORDERED: Oxycodone/Acetaminophen 5/325 mg Tab PO PRN ×2 (15:08)
[2018-11-22] MEDS ORDERED: Acetaminophen 650mg/20.3ml solution UD PO PRN (15:08)
--- NOTE | 2018-11-22 15:08 | CP.SDSHP ---
Same Day Surgery H & P - History Proposed Procedure: Right inguinal hernia repair Pre-Op Diagnosis: right inguinal hernia - Allergies Allergies: Allergies No Known Allergies Allergy (Verified 03/05/18 20:00) - Physical Exam Vital Signs: Vital Signs 11/22/18 10:55 Temperature 98.2 F Pulse Rate 72 Respiratory 16 Rate Blood Pressure 117/72 O2 Sat by Pulse 98 Oximetry Short Stay Discharge - Short Stay Discharge Admitting Diagnosis/Reason for Visit: K40.20 Disposition: HOME/ ROUTINE Additional Instructions (Diet, Activity): Patient can shower Please do not sit in a bathtub full of water No heavy lifting for 4-6 weeks Take pain medications prn Follow up with Dr. Almanzar within 1-2 weeks
[2018-11-22] MEDS ORDERED: Lactated Ringer's 1,000 ML IV SCH (15:15)
[2018-11-22] MEDS: HYDROmorphone 0.5 mg/0.5 ml ISec IVP PRN ×2 (15:50→16:00)
[2018-11-22 17:07] VITALS: RESP 18
[2018-11-22 18:04] VITALS: TEMP 98
--- NOTE | 2018-11-22 18:42 | PCM.SURG1 ---
Surgeon's Initial Post Op Note - Surgeon's Notes Surgeon: Dr. Kaylan Almanzar Classifier: Erma Conley, PGY-2 Type of Anesthesia: General Endo Anesthesia Administered By: Dr. Gaspar Pre-Operative Diagnosis: Right inguinal hernia Operative Findings: Reducible right inguinal hernia Post-Operative Diagnosis: Right inguinal hernia Operation Performed: Right inguinal hernia repair with mesh and plug Specimen/Specimens Removed: hernia sac Estimated Blood Loss: EBL {In ML}: 10 Blood Products Given: N/A Drains Used: No Drains Post-Op Condition: Good Date of Surgery/Procedure: 11/22/18 Time of Surgery/Procedure: 13:05
[2018-11-22 19:33] VITALS: BP 132/87; PULSE 72; O2SAT 98
--- NOTE | 2018-11-23 04:46 | OP ---
PROCEDURE DATE: 11/22/2018 SURGEON: Gera Almanzar MD COMB TENDER: Erma Conley DO ANESTHESIOLOGIST: Favio Gaspar MD ANESTHESIA: General endotracheal. PREOPERATIVE DIAGNOSIS: Right inguinal hernia. POSTOPERATIVE DIAGNOSIS: Right inguinal hernia. FINDINGS: Right inguinal hernia. SPECIMEN: Hernia sac. ESTIMATED BLOOD LOSS: 10 mL. DRAINS: None. COMPLICATIONS: None. INDICATION: Francisco Headley is a 48-year-old male with past medical history significant for right inguinal hernia with intermittent pain. The patient was deemed to be a candidate for open hernia repair. The patient was consented for the same. All risks and benefits were explained to the patient prior to operative intervention and all questions were answered. DESCRIPTION OF PROCEDURE: The patient was marked prior to entering the operating room to specify the right side as the correct side for the operation. The patient was then taken into the operating room and laid supine upon the operating room table. The patent was prepped and draped in the usual sterile fashion after induction of general anesthesia was performed. A time-out was performed verifying the correct patient, procedure, site, and side. A skin incision was then made between the ASIS and the pubic tubercle with dissection carried down through Linda's and Camper's fascia via electrocautery until the aponeurosis of the external oblique was encountered. This was cleaned and the external ring was exposed. An incision was made in the mid portion of the external oblique aponeurosis in the direction of its fibers and extended medially and inferiorly and then superiorly and laterally. Flaps of external oblique were developed cephalad and inferiorly. The cord and cord structures were identified and gently dissected free of the hernia sac and encircled with a Marixa drain. The hernia sac was identified and carefully dissected free of the cord down to the level of the internal ring. The sac was opened and contents were reduced back into the abdominal cavity. A finger was passed into the peritoneal cavity identifying the defect in the inguinal canal. The floor of the inguinal canal was grossly weak. A large Prolene plug was inserted and secured laterally and superiorly with 2-0 Prolene sutures. A mesh onlay was then cut to fit the patient's anatomy; 2-0 Prolene sutures were placed at the pubic tubercle, at the superior medial aspect and at the more lateral superior aspect as well. A mesh patch was then placed over the sutures and tied at all three positions. Additional sutures were placed at the superior and lateral aspect and the lateral and inferior aspect. Care was taken that the mesh was placed to make sure no neurovascular structures were compromised. The tails of the mesh were crossed at the superior and lateral aspect and the internal ring was recreated. Hemostasis was checked. There was no bleeding noted. The external oblique aponeurosis was closed with a running suture of 3-0 Vicryl. Deep dermal absorbable sutures were used to approximate the Linda's fascia in an interrupted fashion. The skin was closed with a subcuticular stitch of 4-0 Monocryl in a running fashion. Surgical glue was then applied after infiltration of local anesthetic. The testes was gently pulled down into anatomic position in the scrotum. All sutures, sponges, and instruments were declared to be correct at the end of the procedure. The patient tolerated the procedure well and was extubated and taken to the postanesthesia care unit in stable condition. Erma Conley DO Gera Almanzar MD ENRIQUE
== END 2018-11-22 19:55 | disposition home or self-care (01) ==
LOC: H.OPSURG 10:09
PROVIDERS: ATTEND Specialist
DX: K40.90 Unilateral inguinal hernia, without obstruction or gangrene, not specified as recurrent (principal); G47.33 Obstructive sleep apnea (adult) (pediatric); E78.5 Hyperlipidemia, unspecified
CPT/HCPCS: 49505; 82948; 88302; C1781; J0330; J0690; J1100; J1170; J2001; J2250; J2704; J2765; J3010; J7030; J7120